=== PATIENT | male | born 1940 | race Caucasian/White ===

== ENCOUNTER → 2017-01-16 | Day surgery (SDC) | payer MEDICARE, BC ==
--- NOTE | 2017-01-17 15:49 | RADRPT ---
EXAM DATE/TIME: 01/16/2017 16:19 [place] COMPARISON : No previous studies available for comparison. INDICATIONS : Evaluate for Left renal mass biopsy and cryo ablation. HISTORY OF PRESENT ILLNESS: The patient is a 76-year-old who underwent CT imaging in [facility]. The CT imaging demonst rated a 5 mm lesion with possible enhancement projecting off the lateral aspect of the lower pole the left kidney. IMAGING STUDIES: The CT scan dated 01/06/17 was reviewed. There is a 4-5 mm lesion projecting off the lower pole of the left kidney. This is indeterminate in appearance by the CT imaging. ASSESSMENT: Due to the small size of this lesion and the patient's age of 76, I would recommend followup CT imagi ng in 6 months to document stability of this lesion. If there is any increase in size of the lesion w e could proceed with attempt at biopsy and ablation at that time. Due to its very small size I feel t he probability of obtaining accurate pathology from this would be limited. PLAN: The patient will need a followup CT imaging in 6 months. TIME SPENT: 15 minutes. Segundo Javier MD on January 17, 2017 at 15:43 Board Certified Radiologist. This report was verified electronically.
== END | disposition home or self-care (01) ==
LOC: HRAD 15:52
PROVIDERS: ATTEND Urology
DX: N28.89 Other specified disorders of kidney and ureter (principal)